=== PATIENT | female | born 1955 ===

== ENCOUNTER → 2022-02-04 | Outpatient (CLI) | payer MEDICARE ==
--- NOTE | 2022-02-04 14:51 | Diagnostic Imaging Report ---
EXAMINATION: Magnetic resonance imaging of the right knee without intravenous contrast. DATE: February 04, 2022. COMPARISON: None. INDICATION: 66-year-old female, right knee pain. Recent twisting injury. TECHNIQUE: Multiplanar, multisequence noncontrast enhanced MR imaging was accomplished. FINDINGS: MENISCI: There is a small oblique tear with inferior surface extension involving the body of the medial meniscus, perhaps best demonstrated on coronal PD sequence image 13. There is a longitudinal horizontal type tear involving the anterior horn, body, and posterior horn of the lateral meniscus. LIGAMENTS AND TENDONS: The anterior and posterior cruciate ligaments are intact. The medial collateral ligament is intact. The iliotibial band, mid third lateral capsular ligament, fibular collateral ligament, biceps femoris tendon, and conjoined tendon are intact. The quadriceps tendon and patella ligament are intact. JOINT: There are broad areas of full-thickness cartilage loss of the lateral patellar facet, median patellar ridge, and lateral half of the medial patellar facet. There are broad areas of full-thickness cartilage loss of the femoral trochlea. The medial and lateral compartment cartilage is grossly intact. There is no knee joint effusion, prominent synovitis, or identified intra-articular body. BONE: There is no acute fracture, bone contusion, or evidence of osteonecrosis. BURSAE AND SOFT TISSUES: No Cormier's cyst. IMPRESSION: 1. Small oblique tear with inferior surface extension involving the body of the medial meniscus. 2. Longitudinal horizontal type tear involving the entire lateral meniscus. 3. Intact anterior and posterior cruciate ligaments. Additional ligaments and tendons are intact. 4. Severe patellofemoral compartment osteoarthritis without knee joint effusion. 5. No acute fracture, bone contusion, or evidence of osteonecrosis. Dictated by: Dictated on workstation # [id number]
--- NOTE | 2022-02-04 15:07 | Diagnostic Imaging Report ---
EXAMINATION: Magnetic resonance imaging of the left knee without intravenous contrast. DATE: February 04, 2022. COMPARISON: None. INDICATION: 66-year-old female, fall 2 years ago. Left knee pain. TECHNIQUE: Multiplanar, multisequence non contrast enhanced MR imaging was accomplished. FINDINGS: MENISCI: The medial meniscus is intact. There is an extensive oblique tear of the anterior horn and body of the lateral meniscus. LIGAMENTS AND TENDONS: The anterior and posterior cruciate ligaments are intact. The medial collateral ligament is intact. The iliotibial band, mid third lateral capsular ligament, fibular collateral ligament, biceps femoris tendon and conjoined tendon are intact. The quadriceps tendon and patella ligament are intact. JOINT: There is a 3 mm full-thickness cartilage defect of the mid weightbearing portion of the lateral femoral condyle. There are broad areas of approximately 75% to near full-thickness cartilage loss of the lateral patellar facet. There is full-thickness cartilage loss involving the lateral aspect of the medial patellar facet cartilage. There is no knee joint effusion, prominent synovitis, or identified intra-articular body. BONE: There is subcortical cystic change in the proximal tibia underlying the attachment site of the posterior root attachment of the medial meniscus. There is no acute fracture, bone contusion, or evidence of osteonecrosis. BURSAE AND SOFT TISSUES: There is a very small amount of fluid in the popliteal fossa without sizable Cormier's cyst. IMPRESSION: 1. Extensive tear of the anterior horn and body of the lateral meniscus. 2. Intact medial meniscus. 3. Intact anterior and posterior cruciate ligaments. Additional ligaments and tendons are intact. 4. No acute fracture, bone contusion, or evidence of osteonecrosis. 5. Severe patellofemoral and mild lateral compartment osteoarthritis without knee joint effusion. Dictated by: Dictated on workstation # [id number]
== END ==
LOC: RAD 13:15
PROVIDERS: ATTEND Family Medicine
DX: S83.241A Other tear of medial meniscus, current injury, right knee, initial encounter (principal); S83.281A Other tear of lateral meniscus, current injury, right knee, initial encounter; M17.11 Unilateral primary osteoarthritis, right knee; X58.XXXA Exposure to other specified factors, initial encounter
CPT/HCPCS: 73721